=== PATIENT | female | born 1985 | race Caucasian/White ===

== ENCOUNTER 2017-10-30 09:41 | Emergency (ER) | payer MEDICAID ==
[~2017-10-30] VITALS: Ht 170.2 cm; Wt 144.2 kg
[2017-10-30 09:50] VITALS: BP 149/87
[2017-10-30] MEDS ORDERED: KETOROLAC 60 MG/2 ML VIAL IM ONE (10:25)
[2017-10-30 10:56] VITALS: BP 149/87
== END 2017-10-30 10:56 | disposition home or self-care (01) ==
LOC: MED 09:41
DX: S91.201A Unspecified open wound of right great toe with damage to nail, initial encounter (principal); F17.210 Nicotine dependence, cigarettes, uncomplicated; X58.XXXA Exposure to other specified factors, initial encounter; Y93.89 Activity, other specified; Y92.89 Other specified places as the place of occurrence of the external cause; Y99.8 Other external cause status
CPT/HCPCS: 96372; 99283; J1885

== ENCOUNTER 2018-09-08 00:30 | Emergency (ER) | payer MEDICAID, OTHER ==
[~2018-09-08] VITALS: Ht 172.7 cm; Wt 153.3 kg
[2018-09-08 00:34] VITALS: BP 177/85
--- NOTE | 2018-09-08 00:34 | NUR ---
PT TAKEN TO BED 8
--- NOTE | 2018-09-08 00:58 | NUR ---
PT TO ED WITH C/O HEADACHE WITH N/V OVER LAST 4 DAYS. PT DENIES VISUAL CHANGES. NO LIGHT SENSITIVITY. NO NOISE SENSITIVITY. PT IS ALERT TO NAME, BIRTHDAY, PLACE, AND EVENT. NO NEURO DEFCITS NOTED. PT PLACED IN BED, PENDING MD MEDLEY.
--- NOTE | 2018-09-08 01:04 | NUR ---
Dr. Mittal evaluating patient at bedside.
[2018-09-08] MEDS ORDERED: NACL 0.9% 1,000 ML IV ONE (01:10)
[2018-09-08] MEDS ORDERED: KETOROLAC 30 MG/ML VIAL IVP ONE (01:25)
[2018-09-08] MEDS ORDERED: PROCHLORPERAZINE 10 MG/2 ML VIAL IVP ONE (01:25)
[2018-09-08 02:11] VITALS: BP 177/85
--- NOTE | 2018-09-08 02:11 | NUR ---
Patient discharged with v/s stable. Written and verbal after care instructions given and explained. Patient alert, oriented and verbalized understanding of instructions. Ambulatory with steady gait. All questions addressed prior to discharge. ID band removed. Patient advised to follow up with PMD. Rx of ZOFRAN AND NAPROSYN WAS given. Patient educated on indication of medication including possible reaction and side effects. Opportunity to ask questions provided and answered.
== END 2018-09-08 02:11 | disposition home or self-care (01) ==
LOC: MED 00:30
DX: R51 Headache (principal); R19.7 Diarrhea, unspecified; G47.9 Sleep disorder, unspecified
CPT/HCPCS: 96361; 96374; 96375; 99283; J0780; J1885; J7030

== ENCOUNTER 2018-09-13 23:24 | Inpatient (IN) | payer OTHER ==
[~2018-09-13] VITALS: Ht 172.7 cm; Wt 178.7 kg
[2018-09-13 23:34] VITALS: BP 127/67
--- NOTE | 2018-09-13 23:41 | NUR ---
TO LOBBY A/W BED, AMBULATORY EKG DONE SINUS TACHYYCARDIA, ERMD NOTED
--- NOTE | 2018-09-14 | NUR ---
PT AMBULATED TO ER BED 4
--- NOTE | 2018-09-14 00:15 | NUR ---
PT IS A 33 Y/O FEMALE WHO PRESENTS TO THE ED C/O CHEST PRESSURE/PAIN. PT STATES THAT SHE WAS PREVIOUSLY SEEN IN ED X1 WEEK FOR HEADACHE AND TOLD TO COME TO ED IF SYMPTOMS GOT WORSE. PT REPORTS 10/10 ACHING CHEST PRESSURE PAIN THAT DOES NOT RADIATE, PT ALSO REPORTS "SOMETHING STUCK IN MY THROAT." PT DENIES SOB, REPORTS VOMITING DENIES NAUSEA/DIARRHEA. PT AWAKE AND ALERT, RR EVEN/UNLABORED. PT REPOSITIONED FOR COMFORT, BED IN LOWEST POSITION. ER MD DR. VALLEJO NOTIFIED. WILL CONTINUE TO MONITOR.
--- NOTE | 2018-09-14 00:52 | NUR ---
Dr. Singh evaluating patient at bedside.
--- NOTE | 2018-09-14 01:00 | NUR ---
PT IN BED RESTING WITH EYES OPEN. VSS. CONTINUE TO MONITOR.
--- NOTE | 2018-09-14 01:24 | NUR ---
X-Ray at bedside.
[2018-09-14 01:27] LABS: BASOPHILS # (AUTO) 0.1 K/uL (0.00-0.22); BASOPHILS % (AUTO) 1.1 % (0.0-2.0); EOSINOPHILS # (AUTO) 0.2 K/uL (0-0.4); EOSINOPHILS % (AUTO) 3.7 % (0.0-4.0); HEMATOCRIT 33.1 % (36-48); HEMOGLOBIN 11.3 g/dL (12.0-16.0); LYMPHOCYTES # (AUTO) 2.1 K/uL (2.5-16.5); LYMPHOCYTES % (AUTO) 32.4 % (20.5-51.1); MEAN CORPUSCULAR HEMOGLOBIN 30 pg (27-31); MEAN CORPUSCULAR HGB CONC 34 g/dL (33-37); MEAN CORPUSCULAR VOLUME 87.1 fL (80-94); MONOCYTES # (AUTO) 0.8 K/uL (0.8-1.0); MONOCYTES % (AUTO) 12.9 % (1.7-9.3); NEUTROPHILS # (AUTO) 3.2 K/uL (1.8-7.7); NEUTROPHILS % (AUTO) 49.9 % (42.2-75.2); PLATELET COUNT (AUTO) 285 K/uL (140-450); RED CELL DISTRIBUTION WIDTH 11.8 % (11.6-13.7); WHITE BLOOD COUNT (AUTO) 6.5 K/uL (4.8-10.8)
[2018-09-14 01:43] LABS: CARBON DIOXIDE 25.9 mmol/L (21-32); CREATININE 0.5 mg/dL (0.6-1.3); POTASSIUM 3.9 mmol/L (3.5-5.1)
[2018-09-14 01:48] LABS: ALBUMIN 2.6 g/dL (3.4-5.0); TOTAL BILIRUBIN 0.3 mg/dL (0.0-1.0)
[2018-09-14 01:57] LABS: CREATINE KINASE MB 0.5 ng/mL (0-3.6)
[2018-09-14] MEDS ORDERED: KETOROLAC 30 MG/ML VIAL IVP ONE (02:00)
[2018-09-14] MEDS ORDERED: NACL 0.9% 1,000 ML IV ONE ×2 (02:00→06:55)
--- NOTE | 2018-09-14 02:32 | NUR ---
PT IN BED WITH HOB ELEVATED. RESTING WITH EYES OPEN. VSS. STATES 8/10 PAIN. CONTINUE TO MONITOR.
[2018-09-14] MEDS ORDERED: ONDANSETRON 4 MG/2 ML VIAL IVP ONE (03:15)
[2018-09-14] MEDS ORDERED: MORPHINE SULFATE 4 MG/ML SYR IVP ONE (03:15)
--- NOTE | 2018-09-14 03:20 | NUR ---
CALLED AND SPOKE TO CHAUNCEY GUIDRY THAT PT WILL BE TRANSFERED FOR CT.
--- NOTE | 2018-09-14 04:46 | NUR ---
[facility] AT BEDSIDE
--- NOTE | 2018-09-14 04:59 | NUR ---
PT IN BED RESTING WITH EYES OPEN. [facility] AT BEDSIDE PREPARING FOR TRANSPORT. CONTINUE TO MONITOR.
--- NOTE | 2018-09-14 05:11 | NUR ---
PT LEFT TO [facility] ER FOR CT. TAKEN VIA AMBULANCE BY DEBBIE.
--- NOTE | 2018-09-14 06:28 | NUR ---
PT RETURNED FROM [place] VIA [facility]. TRANSFERED FROM [facility] TO [facility] 4.
--- NOTE | 2018-09-14 06:40 | NUR ---
PT STATES PAIN IS 5/10 BUT TOLLERABLE. POSITIONED IN BED WITH X2 SIDE RAILS UP. ER MD AWARE. CONTINUE TO MONITOR.
--- NOTE | 2018-09-14 06:42 | NUR ---
Dr. Singh re-evaluating patient at bedside.
[2018-09-14] MEDS ORDERED: DIAZEPAM 5 MG TAB PO ONE (06:55)
[2018-09-14] MEDS ORDERED: ASPIRIN 325 MG TAB PO ONE (07:35)
[2018-09-14] MEDS ORDERED: MORPHINE SULFATE 2 MG/ML SYR IVP PRN (07:50)
[2018-09-14] MEDS ORDERED: DOCUSATE SODIUM 100 MG GELCAP PO PRN (07:50)
[2018-09-14] MEDS ORDERED: ACETAMINOPHEN 325 MG TAB PO PRN (07:50)
[2018-09-14] MEDS ORDERED: HYDROcodone/APAP 7.5/325 MG 1 TAB PO PRN (07:50)
[2018-09-14] MEDS ORDERED: ONDANSETRON 4 MG/2 ML VIAL IM/IVP PRN (07:50)
--- NOTE | 2018-09-14 07:56 | NUR ---
PO/IVF MEDS GIVEN-NADR AT THIS TIME
--- NOTE | 2018-09-14 07:59 | NUR ---
Patient will be admitted to care of [facility]. Admited to TELE. Will go to room 119B. Belongings list completed. Report to JOHN.
[2018-09-14 08:25] VITALS: BP 152/60
--- NOTE | 2018-09-14 08:25 | NUR ---
RECEIVED PT FROM ER NURSE, PT IS AOX4, CONVERSANT AND RESPONDS APPROPRIATELY, AMBULATED TO THE BED AND MADE COMFORTABLE, VITAL SIGNS TAKEN, BP IS 152/60, PULSE IS 121, TEMPERATURE IS 98.9, O2 SATURATION IS 96% AND RESPIRATION IS 20/MIN. PT VERBALIZED A LEFT CHEST PRESSURED PAIN OF 5/10, NO OTHER UNTOWARD SYMPTOM NOTED AND WILL CONTINUE TO MONITOR PT.
[2018-09-14 09:25] LABS: BASOPHILS # (AUTO) 0.1 K/uL (0.00-0.22); BASOPHILS % (AUTO) 0.8 % (0.0-2.0); EOSINOPHILS # (AUTO) 0.2 K/uL (0-0.4); EOSINOPHILS % (AUTO) 2.5 % (0.0-4.0); HEMATOCRIT 31.1 % (36-48); HEMOGLOBIN 10.7 g/dL (12.0-16.0); LYMPHOCYTES # (AUTO) 1.6 K/uL (2.5-16.5); LYMPHOCYTES % (AUTO) 25.8 % (20.5-51.1); MEAN CORPUSCULAR HEMOGLOBIN 30 pg (27-31); MEAN CORPUSCULAR HGB CONC 34 g/dL (33-37); MEAN CORPUSCULAR VOLUME 86.8 fL (80-94); MONOCYTES # (AUTO) 0.6 K/uL (0.8-1.0); MONOCYTES % (AUTO) 9.1 % (1.7-9.3); NEUTROPHILS # (AUTO) 3.8 K/uL (1.8-7.7); NEUTROPHILS % (AUTO) 61.8 % (42.2-75.2); PLATELET COUNT (AUTO) 264 K/uL (140-450); RED BLOOD CELL COUNT(AUTO) 3.58 MIL/uL (4.20-5.40); RED CELL DISTRIBUTION WIDTH 11.8 % (11.6-13.7); WHITE BLOOD COUNT (AUTO) 6.2 K/uL (4.8-10.8)
[2018-09-14 09:41] LABS: CARBON DIOXIDE 22.7 mmol/L (21-32); POTASSIUM 3.7 mmol/L (3.5-5.1)
[2018-09-14 09:42] LABS: CREATININE 0.7 mg/dL (0.6-1.3)
--- NOTE | 2018-09-14 09:55 | NUR ---
ULTRASOUND OF THE VENOUS BILATERAL LOWER EXTREMITY IS BEING DONE TO PT NOW.
[2018-09-14 10:00] LABS: CHOL/HDL RATIO 3.3 (1-4.5); FREE T4 (FREE THYROXINE) 7.07 ng/dL (0.76-1.46); MAGNESIUM 1.6 mg/dL (1.8-2.4); PHOSPHORUS 5.1 mg/dL (2.5-4.9); THYROID STIMULATING HORMONE 0.01 uIU/mL (0.34-3.74)
[2018-09-14] MEDS ORDERED: KETOROLAC 30 MG/ML VIAL IVP SCH (10:00)
[2018-09-14] MEDS: NACL 0.9% 1,000 ML IV SCH (10:00)
[2018-09-14] MEDS ORDERED: ASPIRIN 81 MG TAB.CHEW PO SCH (10:30)
[2018-09-14] MEDS ORDERED: APAP/BUTAL/CAFF 325/50/40 MG 1 TAB PO SCH (10:30)
[2018-09-14] MEDS ORDERED: METOPROLOL 25 MG TAB PO SCH (10:31)
--- NOTE | 2018-09-14 10:35 | NUR ---
PT IS AWAKE AND MRSA SWAB DONE AND SAMPLE WAS SENT TO LAB.
[2018-09-14 10:48] LABS: PROTHROMBIN TIME 10.3 secs (10.8-13.4)
[2018-09-14 12:00] VITALS: BP 130/60
[2018-09-14] MEDS ORDERED: MAG SULF 2000 MG/WATER PREMIX 50 ML IV SCH (12:00)
--- NOTE | 2018-09-14 12:30 | NUR ---
PT IS AWAKE AND ON THE BEDSIDE, PT WAS STARTED WITH MAGNESIUM RIDER 2GM, ADMINISTERED, CO-SIGNED, FOR THE PT'S MG LEVEL OF 1.6. WILL MONITOR PT.
--- NOTE | 2018-09-14 12:45 | NUR ---
PT IS AWAKE AND ON THE BEDSIDE, VITAL SIGNS CHECKED AND BP IS 130/60, PULSE IS 111, O2 SATURATION IS 97%, TEMPERATURE IS 98.9, NO SIGN OF DISTRESS NOTED AND WILL MONITOR PT.
--- NOTE | 2018-09-14 14:10 | NUR ---
PT IS AWAKE, ON THE BEDSIDE AND WAS GIVEN A SANDWICH BECAUSE PT DID NOT EAT MUCH IN THE LUNCH TRAY. NO SIGN OF DISTRESS NOTED, DENIES PAIN AT THIS TIME AND WILL MONITOR PT.
--- NOTE | 2018-09-14 16:20 | NUR ---
PT IS AWAKE AND LYING ON THE BED, VITAL SIGNS CHECKED DONE AND BP IS 139/65, PULSE IS 120, O2 SATURATION IS AT 100%, TEMPERATURE IS 98.9, NO SIGN OF DISTRESS NOTED AND DENIES CHEST PAIN. WILL MONITOR PT.
--- NOTE | 2018-09-14 16:35 | NUR ---
PT AWAKE, ALERT IN BED. RESPIRATIONS EVEN AND UNLABORED ON O2 2L/NC. GIVEN ICE PACK PER PT REQUEST. WILL CONTINUE TO MONITOR.
[2018-09-14 16:40] VITALS: BP 139/65
--- NOTE | 2018-09-14 17:30 | NUR ---
PT STARTED ON O2 2L/NC FOR SOB. PT IN UPRIGHT POSITION IN BED. WILL CONTINUE TO MONITOR.
--- NOTE | 2018-09-14 19:29 | NUR ---
ENDORSED PT TO HEDDLER TIER NURSE FOR CONTINUITY OF CARE. PATIENT IS STABLE AT THIS TIME.
--- NOTE | 2018-09-14 19:30 | NUR ---
RECEIVED PT FROM LALY RN PT MORBID OBESITY ON BED REST ONTELMETRY ST IV ON RT HARM INFUSING WELL DENIES ANY PAIN AT THIS TIME RELATIVE AT BED SIDE INITIAL ASSESSMENT DONE
[2018-09-14 20:00] VITALS: BP 141/62
[2018-09-14] MEDS ORDERED: SERTRALINE 50 MG TAB PO ONE (20:10)
[2018-09-14] MEDS ORDERED: LORazepam 1 MG TAB PO ONE (20:10)
[2018-09-14] MEDS ORDERED: ATORVASTATIN 20 MG TAB PO SCH (21:00)
--- NOTE | 2018-09-14 21:30 | NUR ---
PT COMPLAINT OF ANXIETY AND DEPRESION AND DOCTOR WAS NOTIFYAND MEDIC GIVEN ORDER.
[2018-09-15] VITALS: BP 148/60
--- NOTE | 2018-09-15 | NUR ---
PT SLEEPING DENIES ANY PAIN OR DISCOMFORT ST ON TELEMETRY , DR WILL BE NOTIFY
--- NOTE | 2018-09-15 02:00 | NUR ---
PT AMBULATES TO THE RESTROOM VOIDING WELL, ON TELEMETRY STDR ARNOLD WAS NOTIFY
[2018-09-15] MEDS ORDERED: PROPRANOLOL 20 MG TAB PO ONE (02:50)
[2018-09-15] MEDS: NACL 0.9% 1,000 ML IV SCH (03:45)
[2018-09-15 04:00] VITALS: BP 133/59
--- NOTE | 2018-09-15 04:00 | NUR ---
PT SLEEPING ON TELEMETR ST HR 126, PT DENIES ANY PAIN OR DISCOMFORT
[2018-09-15 06:31] LABS: ANION GAP 14.7 (8-16); CARBON DIOXIDE 22.2 mmol/L (21-32); CREATININE 0.5 mg/dL (0.6-1.3); POTASSIUM 3.9 mmol/L (3.5-5.1)
--- NOTE | 2018-09-15 06:32 | NUR ---
PT REMAIN CALM BUT ON TELE METRYST PT WILL BE ENODRSED TODAY SHIFT NURSE FOR CONTINUITY OF CARE
[2018-09-15 06:44] LABS: MAGNESIUM 1.6 mg/dL (1.8-2.4); PHOSPHORUS 4.9 mg/dL (2.5-4.9)
[2018-09-15 06:59] LABS: BASOPHILS % (AUTO) 0.6 % (0.0-2.0); EOSINOPHILS # (AUTO) 0.2 K/uL (0-0.4); EOSINOPHILS % (AUTO) 3.4 % (0.0-4.0); HEMATOCRIT 31.7 % (36-48); LYMPHOCYTES # (AUTO) 1.5 K/uL (2.5-16.5); LYMPHOCYTES % (AUTO) 21.8 % (20.5-51.1); MEAN CORPUSCULAR HEMOGLOBIN 30 pg (27-31); MEAN CORPUSCULAR HGB CONC 35 g/dL (33-37); MEAN CORPUSCULAR VOLUME 87.2 fL (80-94); MONOCYTES # (AUTO) 0.7 K/uL (0.8-1.0); MONOCYTES % (AUTO) 10.7 % (1.7-9.3); NEUTROPHILS # (AUTO) 4.3 K/uL (1.8-7.7); NEUTROPHILS % (AUTO) 63.5 % (42.2-75.2); PLATELET COUNT (AUTO) 273 K/uL (140-450); RED BLOOD CELL COUNT(AUTO) 3.64 MIL/uL (4.20-5.40); RED CELL DISTRIBUTION WIDTH 11.7 % (11.6-13.7); WHITE BLOOD COUNT (AUTO) 6.8 K/uL (4.8-10.8)
--- NOTE | 2018-09-15 07:30 | NUR ---
RECEIVED PT AAOX4. NO SOB NOTED. NO C/O PAIN AT THIS TIME. IV TO RT AC PATENT AND INTACT. CHEST CLEAR. ABDOMEN SOFT, BOWEL SOUNDS PRESENT. SCD'S IN PLACE. INSTRUCTED PT TO CALL FOR ASSISTANCE, CALL LIGHT WITHIN REACH. PT VERBALIZED UNDERSTANDING.
[2018-09-15 08:00] VITALS: BP 137/62
[2018-09-15] MEDS ORDERED: MAG SULF 2000 MG/WATER PREMIX 50 ML IV SCH (08:00)
--- NOTE | 2018-09-15 08:55 | NUR ---
PT EATING GOOD. CONSUMED ALMOST 100% OF BREAKFAST SERVED. NO COMPLAINTS MADE.
[2018-09-15] MEDS ORDERED: METOPROLOL 25 MG TAB PO SCH (09:00)
[2018-09-15] MEDS ORDERED: ASPIRIN 81 MG TAB.CHEW PO SCH (09:00)
[2018-09-15] MEDS ORDERED: LISINOPRIL 5 MG TAB PO SCH (09:00)
--- NOTE | 2018-09-15 09:00 | NUR ---
MAG RADHA NAPOLES. MAGNESIUM LEVEL AT 1200 NOON ORDERED.
--- NOTE | 2018-09-15 11:00 | NUR ---
MAG RIDER IVPB COMPLETED. PT RESTING. NO COMPLAINTS MADE.
[2018-09-15 12:00] VITALS: BP 140/45
--- NOTE | 2018-09-15 12:30 | NUR ---
INSTRUCTED PT THAT LAB WILL BE HERE TO DRAW BLOOD FOR MAGNESIUM LEVEL. PT VERBALIZED UNDERSTANDING.
[2018-09-15] MEDS ORDERED: ATEN50TA2 PO (12:38)
[2018-09-15] MEDS ORDERED: IBUP-2213 PO (12:38)
[2018-09-15] MEDS ORDERED: SERT50TA PO (12:38)
[2018-09-15] MEDS ORDERED: SLOMAG PO (14:16)
--- NOTE | 2018-09-15 14:36 | NUR ---
GENERAL HEALTHY EATING EDUCATION WAS PROVIDED. PT'S FAMILY MEMBER WAS PRESENTED, AND THEY ACCEPTED EDUCATION.
--- NOTE | 2018-09-15 15:00 | NUR ---
DISCHARGE INSTRUCTIONS AND TEACHINGS GIVEN TO PT, WHICH FULL VERBALIZED UNDERSTANDING THE INSTRUCTIONS GIVEN AND THE NEED TO FOLLOW UP WITH PCP AND ACETYLENE CYLINDER PACKING MIXER ON THE GIVEN APPOINTMENT BY MECHANICAL UNIT REPAIRER. PER DR. SAWYER, MECHANICAL UNIT REPAIRER NORBERT WILL GIVE PT A CALL SOON SHE HAS ALL THE INFORMATIONS. ARM BANDS AND IV REMOVED, CANNULA TIP INTACT. PT MADE AWARE THAT ALL THE PRESCRIPTIONS WERE SENT ELECTRONICALLY TO HER PHARMACY OF CHOICE IN [place]. PT STATED SHE WILL PICK IT UP ON HER WAY HOME.
--- NOTE | 2018-09-15 15:05 | NUR ---
PT WHEELED OUT TO THE FRONT LOBBY IN STABLE CONDITION. NO SOB NOTED. NO COMPLAINTS MADE. PT IS DISCHARGED HOME WITH .
--- NOTE | 2018-09-15 15:25 | NUR ---
CALLED [facility] [phone] FOR AUTH# TO SEE DAY CARE PROVIDER FAXED THE REFERRAL FORM TO [phone] BEASLEY'S OFFICE NEXT AVAILABLE TIME IS OCTOBER [address] LANGE . CALED PATIENT'S SPOKE WITH KASH MENON [phone] NOTIFIED THAT SHE HAS APPOINTMENT WITH DR LANGE (DAY CARE PROVIDER) AND PROVIDED THE OFFICE ADDRESS AND PHONE # [phone] [facility] [place] [address] PHONE # [phone].
[2018-09-16] MEDS ORDERED: ATENOLOL 50 MG TAB PO SCH (09:00)
== END 2018-09-15 15:05 | disposition home or self-care (01) | DRG 203 ==
LOC: MED 23:24 → MTU 09-14 07:37
PROVIDERS: ADMIT General Practice; ATTEND General Practice
PROC: 05HY33Z Insertion of Infusion Device into Upper Vein, Percutaneous Approach (ICD-10-PCS; principal; 2018-09-14)
PROC: B54MZZA Ultrasonography of Right Upper Extremity Veins, Guidance (ICD-10-PCS; 2018-09-14)
DX: M94.0 Chondrocostal junction syndrome [Tietze] (principal); E43 Unspecified severe protein-calorie malnutrition; E66.01 Morbid (severe) obesity due to excess calories; E83.42 Hypomagnesemia; E05.90 Thyrotoxicosis, unspecified without thyrotoxic crisis or storm; Z68.43 Body mass index [BMI] 50.0-59.9, adult; Z71.3 Dietary counseling and surveillance; Z82.3 Family history of stroke; Z82.49 Family history of ischemic heart disease and other diseases of the circulatory system; K21.9 Gastro-esophageal reflux disease without esophagitis
CPT/HCPCS: 36415; 71045; 80048; 80053; 82140; 82150; 82550; 82553; 83036; 83605; 83615; 83690; 83735; 83880; 84100; 84439; 84443; 84484; 85025; 85379; 85610; 85730; 87081; 93005; 93970; 96361; 96374; 96375; 99291; J1644; J1885; J2270; J2405; J3475; J7030; Q0092

== ENCOUNTER 2018-09-29 09:11 | Observation (INO) | payer OTHER ==
[~2018-09-29] VITALS: Ht 172.7 cm; Wt 170.1 kg
[~2018-09-29 09:11] MED LIST: ATEN50TA2 PO; IBUP-2213 PO; SERT50TA PO; SLOMAG PO
--- NOTE | 2018-09-29 09:15 | NUR ---
urine cup handed to pt for sample
[2018-09-29 09:18] VITALS: BP 142/51
--- NOTE | 2018-09-29 09:20 | NUR ---
33 y female bib self c/o feeling shaky, hot, n/v/d, leg weakness x 1 wk. patient states every time she eats she has diarrhea and vomits. denies blood in stool. abdomen round and soft, non-tender to touch. bowel sounds active in all four quadrants. last bm today. pt tacy at 106. aa0x4. bed is down, locked bed rail x 1, ermd to see pt. seen and admitted in our er September 2018 hx--hyperthryoid rx---atenolol
--- NOTE | 2018-09-29 09:25 | NUR ---
DR LIU BEDSIDE
[2018-09-29] MEDS ORDERED: NACL 0.9% 1,000 ML IV ONE ×2 (09:35→10:25)
--- NOTE | 2018-09-29 09:38 | NUR ---
PT UNABLE TO GIVE URINE AT THIS TIME
[2018-09-29 09:58] LABS: BASOPHILS % (AUTO) 0.7 % (0.0-2.0); EOSINOPHILS # (AUTO) 0.1 K/uL (0-0.4); EOSINOPHILS % (AUTO) 1.6 % (0.0-4.0); HEMATOCRIT 30.6 % (36-48); HEMOGLOBIN 10.5 g/dL (12.0-16.0); LYMPHOCYTES # (AUTO) 1.2 K/uL (2.5-16.5); LYMPHOCYTES % (AUTO) 21.1 % (20.5-51.1); MEAN CORPUSCULAR HEMOGLOBIN 29 pg (27-31); MEAN CORPUSCULAR HGB CONC 34 g/dL (33-37); MEAN CORPUSCULAR VOLUME 85.6 fL (80-94); MONOCYTES # (AUTO) 0.7 K/uL (0.8-1.0); MONOCYTES % (AUTO) 12.9 % (1.7-9.3); NEUTROPHILS # (AUTO) 3.6 K/uL (1.8-7.7); NEUTROPHILS % (AUTO) 63.7 % (42.2-75.2); PLATELET COUNT (AUTO) 247 K/uL (140-450); RED BLOOD CELL COUNT(AUTO) 3.58 MIL/uL (4.20-5.40); RED CELL DISTRIBUTION WIDTH 11.3 % (11.6-13.7); WHITE BLOOD COUNT (AUTO) 5.6 K/uL (4.8-10.8)
--- NOTE | 2018-09-29 10:10 | NUR ---
XRAY AT BEDSIDE
[2018-09-29 10:15] LABS: ALBUMIN 2.8 g/dL (3.4-5.0); ANION GAP 12.9 (8-16); CARBON DIOXIDE 24.8 mmol/L (21-32); CREATININE 0.5 mg/dL (0.6-1.3); POTASSIUM 3.7 mmol/L (3.5-5.1); TOTAL BILIRUBIN 0.5 mg/dL (0.0-1.0)
[2018-09-29] MEDS ORDERED: METOPROLOL 5 MG/5 ML VIAL IVP ONE (10:25)
--- NOTE | 2018-09-29 10:46 | NUR ---
PT UNABLE TO GIVE URINE AT THIS TIME. ANOTHER 1000 ML NS STarted. pt given metroprolol for pt hr. tachy at 108. bp 126/56
--- NOTE | 2018-09-29 11:24 | NUR ---
PT AMB TO RESTROOM FOR URINE SAMPLE
--- NOTE | 2018-09-29 11:45 | NUR ---
BP 114/43 AND HR 103
[2018-09-29] MEDS ORDERED: ONDANSETRON 4 MG/2 ML VIAL IVP ONE (12:05)
--- NOTE | 2018-09-29 12:12 | NUR ---
PT C/O INCREASED NAUSEA. PT GIVEN VOMIT BAG AND ZOFRAN ADMINISTERED IV PUSH
[2018-09-29] MEDS ORDERED: NACL 0.9% 1,000 ML IV SCH (12:21)
[2018-09-29] MEDS ORDERED: DOCUSATE SODIUM 100 MG GELCAP PO PRN (12:25)
[2018-09-29] MEDS ORDERED: ACETAMINOPHEN 325 MG TAB PO PRN (12:25)
[2018-09-29] MEDS ORDERED: HYDROcodone/APAP 5/325 MG 1 TAB TAB PO PRN (12:25)
[2018-09-29] MEDS ORDERED: LORazepam 2 MG/ML VIAL IM/IVP PRN (12:25)
[2018-09-29] MEDS ORDERED: MORPHINE SULFATE 2 MG/ML SYR IVP PRN (12:25)
[2018-09-29] MEDS ORDERED: DEXT 5% / NACL 0.45% 1,000 ML IV SCH (12:45)
[2018-09-29 12:55] VITALS: BP 116/42
--- NOTE | 2018-09-29 12:55 | NUR ---
PATIENT ARRIVED FROM ER. ABLE TO AMBULATE FROM ER BED TO [facility] BED. NO DISTRESS NOTED. V/S WNL. RESPIRATIONS EVEN, UNLABORED, ON ROOM AIR. AAOX4, CALM, COOPERATIVE, SKIN COLOR APPROPRIATE TO ETHNICITY, WARM TO TOUCH. SKIN INTACT. PATIENT MORBIDLY OBESE. IV SITE INTACT, PATENT, AND ON SALINE LOCK AT THIS TIME. ORIENTED PATIENT TO ROOM AND CALL LIGHT. REVIEWED PLAN OF CARE WITH PATIENT. PATIENT VERBALIZED UNDERSTANDING. SAFETY MEASURES IN PLACE, CALL LIGHT WITHIN REACH. WILL CONTINUE TO MONITOR.
--- NOTE | 2018-09-29 12:55 | NUR ---
Patient will be admitted to care of [facility]. Admited to TELE. Will go to room 106A. Belongings list completed. Report to BORA MOYER. ATIVAN ADMINISTERED AT 1245-TO BE RE-EVALUATED FOR ADVERSE REACTIONS BY BORA MOYER.
[2018-09-29 13:15] LABS: BARBITURATE, URINE NEGATIVE ng/ml (NEG <=200); BENZODIAZEPINE, URINE NEGATIVE ng/mL (NEG <=200); CANNABINOID, URINE POSITIVE ng/mL (NEG <=50); COCAINE, URINE NEGATIVE ng/mL (NEG <=300); OPIATE, URINE NEGATIVE ng/mL (NEG <=2000); PHENCYCLIDINE SCREEN,URINE NEGATIVE ng/mL (NEG <=25)
[2018-09-29 13:32] LABS: PROTHROMBIN TIME 11.3 secs (10.8-13.4)
[2018-09-29 13:34] LABS: APPEARANCE,URINE HAZY (CLEAR); BILIRUBIN,URINE 1+ (NEGATIVE); BLOOD, URINE TRACE (NEGATIVE); COLOR,URINE YELLOW (YELLOW); NITRITE, URINE NEGATIVE (NEGATIVE); PH,URINE 5.5 (5.0-9.0); UGLUCOSE NEGATIVE (NEGATIVE)
[2018-09-29 13:35] LABS: LEUKOCYTE ESTERASE ,URINE 3+ (NEGATIVE)
[2018-09-29 13:39] LABS: TRICHOMONAS,URINE Few /HPF (None Seen)
[2018-09-29 13:44] LABS: AMYLASE 13 U/L (25-115); LIPASE 107 U/L (73-393); MAGNESIUM 1.5 mg/dL (1.8-2.4); PHOSPHORUS 4.7 mg/dL (2.5-4.9)
[2018-09-29 13:47] LABS: FREE T4 (FREE THYROXINE) > 8.00 ng/dL (0.76-1.46)
--- NOTE | 2018-09-29 13:50 | NUR ---
DR. ROMO AT BEDSIDE REVIEWING PLAN OF CARE WITH PATIENT. DR. ROMO EXPLAINING THE RISKS OF TAKING MEDICATIONS TO HELP WITH HYPERTHYROIDISM TO PATIENT, RISKS INCLUDE DIFFICULTY CONCEIVING. DR. ROMO ANSWERED ALL OF PATIENT/FAMILY QUESTIONS REGARDING PLANNED TREATMENT MEDICATIONS AND RISKS/SIDE EFFECTS. PATIENT/FAMILY AT BEDSIDE VERBALIZED COMPLETE UNDERSTANDING AND WISHES TO CONTINUE TO PROCEED WITH THE MEDICATION TREATMENT. WILL CONTINUE TO MONITOR.
[2018-09-29] MEDS ORDERED: MAG SULF 2000 MG/WATER PREMIX 50 ML IV SCH (14:00)
[2018-09-29] MEDS ORDERED: ATENOLOL 50 MG TAB PO SCH (14:14)
--- NOTE | 2018-09-29 15:04 | NUR ---
PATIENT SITTING IN BED. NO DISTRESS NOTED. DENIES ANY PAIN. SCHEDULED MEDICATIONS DUE GIVEN. WILL CONTINUE TO MONITOR.
--- NOTE | 2018-09-29 15:15 | NUR ---
US THYROID BEING DONE AT BEDSIDE. WILL CONTINUE TO MONITOR.
[2018-09-29] MEDS ORDERED: ONDANSETRON 4 MG/2 ML VIAL IM/IVP PRN (16:00)
--- NOTE | 2018-09-29 16:25 | NUR ---
PATIENT BACK FROM CT ABD WITH CONTRAST. NO DISTRESS NOTED. WILL CONTINUE TO MONITOR.
--- NOTE | 2018-09-29 16:36 | NUR ---
SCHEDULED MEDICATIONS DUE GIVEN. DENIES ANY NAUSEA/VOMITING AT THIS TIME. WILL CONTINUE TO MONITOR.
[2018-09-29] MEDS ORDERED: METHIMAZOLE 5 MG TAB PO SCH ×3 (17:00→21:00)
--- NOTE | 2018-09-29 17:09 | NUR ---
SCHEDULED MEDICATIONS DUE GIVEN. WILL CONTINUE TO MONITOR.
--- NOTE | 2018-09-29 19:14 | NUR ---
GAVE REPORT TO GALLEY STRIPPER NURSE FOR CONTINUITY OF CARE. PATIENT IN STABLE CONDITION.
--- NOTE | 2018-09-29 19:15 | NUR ---
Received endorsement from AM shift RN; patient A/Ox4, able to make needs known, Nauruan speaking, ambulatory. Patient talking with and [id number]; introduced self, updated board. No SOB or distress noted, on room air. IV site on left forearm, 20 gauge, running IVF at 80mL/hr. Skin intact. Bed in the lowest position, call light within reach. Initial assessment done. Will continue to monitor.
[2018-09-29 20:00] VITALS: BP 100/73
--- NOTE | 2018-09-29 20:45 | NUR ---
Due meds given, tolerated well.
--- NOTE | 2018-09-29 21:20 | NUR ---
Dr. Minor in patient room to discuss imaging results.
--- NOTE | 2018-09-29 21:25 | NUR ---
Patient went AMA; risks explained, patient still wants to go AMA. AMA paperwork signed. Removed IV, tip intact. Patient able to ambulate from bed with no assistance. Patient ambulated from unit with and [id number]. Vitals stable upon discharge.
[2018-09-30] MEDS ORDERED: ATENOLOL 50 MG TAB PO SCH (09:00)
[2018-09-30] MEDS ORDERED: LACTOBACILLUS RHAMNOSUS GG 1 EACH CAP PO SCH (09:00)
[2018-09-30 11:29] LABS: T3 UPTAKE > 56 % (24 - 39); T4 (THYROXINE) 21.3 ug/dL (4.5 - 12.0)
[2018-10-01 15:06] LABS: FOLIC ACID 11.5 ng/mL (>3.0)
== END 2018-09-29 21:25 | disposition left against medical advice (07) ==
LOC: MED 09:11 → MTU 12:37
PROVIDERS: ADMIT General Practice; ATTEND General Practice
DX: A41.9 Sepsis, unspecified organism (principal); N39.0 Urinary tract infection, site not specified; K92.9 Disease of digestive system, unspecified; E05.90 Thyrotoxicosis, unspecified without thyrotoxic crisis or storm; E46 Unspecified protein-calorie malnutrition; E83.42 Hypomagnesemia; D50.9 Iron deficiency anemia, unspecified; E66.01 Morbid (severe) obesity due to excess calories; Z68.43 Body mass index [BMI] 50.0-59.9, adult
CPT/HCPCS: 36415; 71045; 74178; 76536; 80053; 80305; 81001; 81025; 82150; 82607; 82728; 82746; 83540; 83605; 83690; 83735; 83880; 84100; 84436; 84439; 84443; 84479; 84484; 85025; 85045; 85379; 85610; 85730; 87040; 87081; 87086; 93005; 96361; 96365; 96366; 96368; 96375; 99285; G0378; J0696; J2060; J2405; J3475; J3490; J7030; J7060; Q0092; Q9967; 96372; 96374

== ENCOUNTER 2019-05-22 18:52 | Emergency (ER) | payer SELFPAY ==
[~2019-05-22] VITALS: Ht 172.7 cm; Wt 169.6 kg
[~2019-05-22 18:52] MED LIST changes: -SERT50TA PO; -SLOMAG PO
--- NOTE | 2019-05-22 19:21 | NUR ---
PT TAKEN TO BED 2
[2019-05-22 19:25] VITALS: BP 123/86
--- NOTE | 2019-05-22 19:30 | NUR ---
REPORTING DIZZINESS, PALPATATIONS, NVD ON AND OFF FOR THE PAST WEEK. PATIENT AMB WITH STEADY GAIT. PATIENT REPORTS HX OF GRAVES DISEASE. STATES SHE FELT LIKE THIS LAST TIME SHE WAS IN THYROID STORM. LUNGS CLEAR. ABD SOFT AND NON-TENDER, AAO. STATES SHE GETS DIZZY WHEN SHE WALKS. NO OTHER HX REPORTED. SITTING UP IN BED. PATIENT VSS ON MONITOR. BED LOW LOCKED WITH SIDE RAIL UP.
[2019-05-22] MEDS ORDERED: ONDANSETRON 4 MG ODT PO ONE (19:50)
[2019-05-22] MEDS ORDERED: LORazepam 1 MG TAB PO ONE (19:50)
--- NOTE | 2019-05-22 20:16 | NUR ---
XRAY AT BEDSIDE
[2019-05-22 20:18] LABS: BASOPHILS # (AUTO) 0.1 K/uL (0.00-0.22); BASOPHILS % (AUTO) 1.3 % (0.0-2.0); EOSINOPHILS # (AUTO) 0.1 K/uL (0-0.4); EOSINOPHILS % (AUTO) 1.2 % (0.0-4.0); HEMATOCRIT 42.3 % (36-48); HEMOGLOBIN 14.1 g/dL (12.0-16.0); LYMPHOCYTES # (AUTO) 2.9 K/uL (2.5-16.5); LYMPHOCYTES % (AUTO) 40.7 % (20.5-51.1); MEAN CORPUSCULAR HEMOGLOBIN 30 pg (27-31); MEAN CORPUSCULAR HGB CONC 33 g/dL (33-37); MONOCYTES # (AUTO) 0.6 K/uL (0.8-1.0); MONOCYTES % (AUTO) 8.5 % (1.7-9.3); NEUTROPHILS # (AUTO) 3.5 K/uL (1.8-7.7); NEUTROPHILS % (AUTO) 48.3 % (42.2-75.2); PLATELET COUNT (AUTO) 313 K/uL (140-450); RED BLOOD CELL COUNT(AUTO) 4.76 MIL/uL (4.20-5.40); RED CELL DISTRIBUTION WIDTH 13.1 % (11.6-13.7); WHITE BLOOD COUNT (AUTO) 7.2 K/uL (4.8-10.8)
[2019-05-22 20:43] LABS: ALBUMIN 3.6 g/dL (3.4-5.0); ANION GAP 11.4 (8-16); CREATININE 0.9 mg/dL (0.6-1.3); FREE T4 (FREE THYROXINE) 0.49 ng/dL (0.76-1.46); POTASSIUM 3.4 mmol/L (3.5-5.1); THYROID STIMULATING HORMONE 22.52 uIU/mL (0.34-3.74); TOTAL BILIRUBIN 0.2 mg/dL (0.0-1.0)
--- NOTE | 2019-05-22 21:21 | NUR ---
REPORT RECIEVED FROM [facility] FOR CONTINUED CARE. PATIENT SITTING UP IN BED.
--- NOTE | 2019-05-22 21:21 | NUR ---
Note kelseymilena in EDM - 05/22/19 at 2121 by CÉSAR REPORT RECIEVED FROM [facility] FOR CONTINUED CARE. PATIENT SITTING UP IN BED. SON AT BEDSIDE. PATIENT STATES HER PAIN IS 8/10 AFTER BEING MANIPULATED FOR XRAY.
[2019-05-22 21:38] LABS: APPEARANCE,URINE CLEAR (CLEAR); BILIRUBIN,URINE NEGATIVE (NEGATIVE); BLOOD, URINE NEGATIVE (NEGATIVE); COLOR,URINE YELLOW (YELLOW); LEUKOCYTE ESTERASE ,URINE NEGATIVE (NEGATIVE); NITRITE, URINE NEGATIVE (NEGATIVE); UGLUCOSE NEGATIVE (NEGATIVE)
[2019-05-22 21:51] VITALS: BP 112/78
== END 2019-05-22 21:51 | disposition home or self-care (01) ==
LOC: MED 18:52
DX: E07.9 Disorder of thyroid, unspecified (principal); R00.2 Palpitations; F41.9 Anxiety disorder, unspecified; R19.7 Diarrhea, unspecified; Z79.899 Other long term (current) drug therapy
CPT/HCPCS: 36415; 71045; 80053; 81003; 81025; 84439; 84443; 85025; 93005; 99284; Q0092; Q0162

== ENCOUNTER 2019-08-19 09:31 | Emergency (ER) | payer SELFPAY ==
[~2019-08-19] VITALS: Ht 172.7 cm; Wt 152.0 kg
[2019-08-19 09:44] VITALS: BP 154/100
--- NOTE | 2019-08-19 09:48 | NUR ---
Patient ambulated to bed 4. RN evaluating patient at bedside.
--- NOTE | 2019-08-19 10:05 | NUR ---
C/O L KNEE PAIN 09/21 DUE TO SLIP AND FALL IN THE SHOWER X2 DAYS AGO. PT DENIES HITTING HEAD. CMS INTACT. PT STATES PAIN WITH WALKING OR BENDING KNEE, FACIAL GRIMACING. L KNEE TENDER TO TOUCH. PT REPORTS TAKING TYLENOL WITHY SOME RELIEF. PT ALERT AND AWAKE, VS STABLE. AMBULATES WITH LIMP. HX: GRAVES DISEASE RX: NONE AT THIS TIME
--- NOTE | 2019-08-19 10:07 | NUR ---
RESIDENT AT BEDSIDE
[2019-08-19] MEDS: ACETAMINOPHEN 325 MG TAB PO ONE (10:24)
[2019-08-19] MEDS: IBUPROFEN 400 MG TAB PO ONE (10:24)
--- NOTE | 2019-08-19 10:24 | NUR ---
TYLENOL AND MOTRIN PO ADMINISTERED. PT STATES SHE HASNT TAKEN EITHER RECENTLY
--- NOTE | 2019-08-19 11:35 | NUR ---
NADR, PAIN 06/21
--- NOTE | 2019-08-19 11:35 | NUR ---
APPLIED SRIKANTH WRAP TO LEFT ANKLE WITHOUT ANY ISSUES. PT DEMONSTRATED PROPER USE OF CRUTCHES
--- NOTE | 2019-08-19 11:36 | NUR ---
L PEDAL PULSE WNL AFTER SRIKANTH WRAP PLACED. PT VERBALIZED UNDERSTANDING OF CRUTCH USE
[2019-08-19 11:37] VITALS: BP 129/59
--- NOTE | 2019-08-19 11:37 | NUR ---
Patient discharged with v/s stable. Written and verbal after care instructions given and explained REGARDING KNEE SPRAIN. Patient alert, oriented and verbalized understanding of instructions. Ambulatory with steady gait. All questions addressed prior to discharge. ID band removed. Patient advised to follow up with PMD. Rx of NAPROSYN. PT INSTRUCTED TO TAKE WITH MEAL AND CAN ALTERNATE WITH TYLENOL/MOTRIN. Patient educated on indication of medication including possible reaction and side effects. Opportunity to ask questions provided and answered. PT INSTRUCTED TO CONTINUE WEARING SRIKANTH WRAP WITH ACTIVITY, CAN REMOVE WITH SHOWER. APPLY ICE 2-3 TIMES A DAY
== END 2019-08-19 11:37 | disposition home or self-care (01) ==
LOC: MED 09:31
DX: S83.8X2A Sprain of other specified parts of left knee, initial encounter (principal); E07.9 Disorder of thyroid, unspecified; E05.00 Thyrotoxicosis with diffuse goiter without thyrotoxic crisis or storm; Z79.899 Other long term (current) drug therapy; W18.39XA Other fall on same level, initial encounter; Y92.89 Other specified places as the place of occurrence of the external cause; Y92.012 Bathroom of single-family (private) house as the place of occurrence of the external cause; Y99.8 Other external cause status
CPT/HCPCS: 73562; 99283; Q0092

== ENCOUNTER 2020-02-13 19:12 | Emergency (ER) | payer OTHER ==
[~2020-02-13] VITALS: Ht 172.7 cm; Wt 170.6 kg
[2020-02-13 19:15] VITALS: BP 139/107
--- NOTE | 2020-02-13 19:22 | NUR ---
BIBS, C/O NON-RADIATING CX PAIN X2D. STATES PAIN IS 6/10 WITH MOVEMENT BUT WHEN SITTING ITS 1/10. PLACED ON MONITOR. SR NOTED. + S1, S2 UPON AUSCULTATION. HR WNL. SPO2 WNL. STATES THAT SHE HAS LOSS OF TASTE AND SMELL AND CONGESTION. CLAIMS NEGATIVE COVID RESULTS 2 DAYS AGO. LUNG SOUNDS WNL. NO SOB OR RESP DISTRESS OBSERVED. PMH- GRAVES DISEASE, UTI. NKA.
[2020-02-13] MEDS ORDERED: KETOROLAC 30 MG/ML VIAL IVP ONE (19:55)
[2020-02-13] MEDS ORDERED: NACL 0.9% 1,000 ML IV ONE (19:55)
[2020-02-13 20:27] LABS: BASOPHILS # (AUTO) 0.1 K/uL (0.00-0.22); BASOPHILS % (AUTO) 1.1 % (0.0-2.0); EOSINOPHILS # (AUTO) 0.5 K/uL (0-0.4); EOSINOPHILS % (AUTO) 4.8 % (0.0-4.0); HEMATOCRIT 40.1 % (36-48); HEMOGLOBIN 13.9 g/dL (12.0-16.0); LYMPHOCYTES # (AUTO) 2.4 K/uL (2.5-16.5); LYMPHOCYTES % (AUTO) 24.3 % (20.5-51.1); MEAN CORPUSCULAR HEMOGLOBIN 30 pg (27-31); MEAN CORPUSCULAR HGB CONC 35 g/dL (33-37); MEAN CORPUSCULAR VOLUME 87.8 fL (80-94); MONOCYTES # (AUTO) 0.5 K/uL (0.8-1.0); NEUTROPHILS # (AUTO) 6.4 K/uL (1.8-7.7); NEUTROPHILS % (AUTO) 64.8 % (42.2-75.2); PLATELET COUNT (AUTO) 272 K/uL (140-450); RED BLOOD CELL COUNT(AUTO) 4.57 MIL/uL (4.20-5.40); RED CELL DISTRIBUTION WIDTH 12.9 % (11.6-13.7); WHITE BLOOD COUNT (AUTO) 9.9 K/uL (4.8-10.8)
--- NOTE | 2020-02-13 20:30 | NUR ---
22G IV STARTED IN LT AC, 2 ATTEMPTS MADE. FLUIDS RAN WIDE OPEN ORDERED. PT TOLERATED WELL. WILL CONT TO MONITOR.
[2020-02-13 20:50] LABS: ALBUMIN 3.4 g/dL (3.4-5.0); ANION GAP 15.5 (8-16); CARBON DIOXIDE 23.8 mmol/L (21-32); CREATININE 0.8 mg/dL (0.6-1.3); POTASSIUM 3.3 mmol/L (3.5-5.1); TOTAL BILIRUBIN 0.2 mg/dL (0.0-1.0)
[2020-02-13] MEDS ORDERED: POTASSIUM CHLORIDE 10 MEQ TABER PO ONE (21:00)
--- NOTE | 2020-02-13 22:31 | NUR ---
Patient discharged with v/s stable. Written and verbal after care instructions given and explained. Patient verbalized understanding. Ambulatory with steady gait. All questions addressed prior to discharge. Advised to follow up with PMD.
[2020-02-13 22:35] VITALS: BP 137/88
--- NOTE | 2020-02-16 01:58 | NUR ---
late entry----- s/w primary nurse Parul, as follows; NS 0.9% End time: 2119
== END 2020-02-13 22:31 | disposition home or self-care (01) ==
LOC: MED 19:12
DX: R07.9 Chest pain, unspecified (principal); M79.89 Other specified soft tissue disorders
CPT/HCPCS: 36415; 71045; 80053; 81025; 84443; 84484; 85025; 87426; 93005; 96361; 96374; 99285; J1885; J7030; Q0092

== ENCOUNTER 2020-02-24 12:39 | Emergency (ER) | payer OTHER ==
[~2020-02-24] VITALS: Ht 172.7 cm; Wt 146.1 kg
[2020-02-24 12:53] VITALS: BP 149/94
--- NOTE | 2020-02-24 13:25 | NUR ---
COVID SWAB COLLECTED, GIVEN TO LAB.
[2020-02-24 13:32] VITALS: BP 149/94
== END 2020-02-24 13:32 | disposition home or self-care (01) ==
LOC: MED 12:39
DX: R03.0 Elevated blood-pressure reading, without diagnosis of hypertension (principal); F17.200 Nicotine dependence, unspecified, uncomplicated; E07.9 Disorder of thyroid, unspecified; Z79.899 Other long term (current) drug therapy; Z98.890 Other specified postprocedural states; Z20.828 Contact with and (suspected) exposure to other viral communicable diseases; Z71.6 Tobacco abuse counseling
CPT/HCPCS: 99283; U0003

== ENCOUNTER 2020-08-29 11:17 | Emergency (ER) | payer OTHER ==
[~2020-08-29] VITALS: Ht 172.7 cm; Wt 158.8 kg
[2020-08-29 11:31] VITALS: BP 153/99
--- NOTE | 2020-08-29 12:00 | NUR ---
35 YEAR OLD FEMALE COMPLAINS OF NAUSEA, VOMITTING, AND DIARRHEA X 2 DAYS. PT STATES THAT SHE ALSO HAD SYNCOPE EPISODE 3 DAYS AGO, BUT DOES NOT FEEL LIKE SHE IS GOING TO PASS OUT RIGHT NOW. PT STATES SHE HAS HEADACHE. PT AOX4, BREATHING EVEN AND UNLABORED, SKIN WARM AND DRY. BED IN LOWEST POSITION, LOCKED, BED RAIL UPX1. PMH - HYPERTHYROID ALLERGIES - NKA
[2020-08-29] MEDS ORDERED: ONDANSETRON 4 MG/2 ML VIAL IVP ONE (12:10)
[2020-08-29] MEDS ORDERED: KETOROLAC 15 MG/ML VIAL IVP ONE (12:10)
[2020-08-29 12:30] LABS: BASOPHILS # (AUTO) 0.1 K/uL (0.00-0.22); BASOPHILS % (AUTO) 1.1 % (0.0-2.0); EOSINOPHILS # (AUTO) 0.4 K/uL (0-0.4); EOSINOPHILS % (AUTO) 4.8 % (0.0-4.0); HEMATOCRIT 40.4 % (36-48); HEMOGLOBIN 13.8 g/dL (12.0-16.0); LYMPHOCYTES # (AUTO) 1.8 K/uL (2.5-16.5); LYMPHOCYTES % (AUTO) 24.5 % (20.5-51.1); MEAN CORPUSCULAR HEMOGLOBIN 30 pg (27-31); MEAN CORPUSCULAR HGB CONC 34 g/dL (33-37); MEAN CORPUSCULAR VOLUME 87.8 fL (80-94); MONOCYTES # (AUTO) 0.4 K/uL (0.8-1.0); MONOCYTES % (AUTO) 5.4 % (1.7-9.3); NEUTROPHILS # (AUTO) 4.8 K/uL (1.8-7.7); NEUTROPHILS % (AUTO) 64.2 % (42.2-75.2); PLATELET COUNT (AUTO) 294 K/uL (140-450); RED CELL DISTRIBUTION WIDTH 12.7 % (11.6-13.7); WHITE BLOOD COUNT (AUTO) 7.4 K/uL (4.8-10.8)
--- NOTE | 2020-08-29 12:31 | NUR ---
ULTRASOUND AT BEDSIDE
--- NOTE | 2020-08-29 13:00 | NUR ---
PT ALERT AND AWAKE, BREATHING EVEN AND UNLABORED. NO DISTRESS NOTED.
[2020-08-29 13:23] LABS: ALBUMIN 3.5 g/dL (3.4-5.0); ANION GAP 11.8 (8-16); CARBON DIOXIDE 29.2 mmol/L (21-32); CREATININE 0.7 mg/dL (0.6-1.3); FREE T4 (FREE THYROXINE) 0.87 ng/dL (0.76-1.46); THYROID STIMULATING HORMONE 1.04 uIU/mL (0.34-3.74); TOTAL BILIRUBIN 0.3 mg/dL (0.0-1.0)
[2020-08-29] MEDS ORDERED: TAP5 PO (13:59)
[2020-08-29] MEDS ORDERED: ZOLP12.564 PO (13:59)
[2020-08-29 14:10] VITALS: BP 134/78
--- NOTE | 2020-08-29 14:11 | NUR ---
Patient discharged with v/s stable. Written and verbal after care instructions about insomnia, hyperthyroidism given and explained. Patient alert, oriented and verbalized understanding of instructions. Ambulatory with steady gait. All questions addressed prior to discharge. ID band removed. Patient advised to follow up with PMD. Rx of tapazole, zolpidem given. Patient educated on indication of medication including possible reaction and side effects. Opportunity to ask questions provided and answered.
== END 2020-08-29 14:30 | disposition home or self-care (01) ==
LOC: MED 11:17
DX: R00.2 Palpitations (principal); R07.9 Chest pain, unspecified; R55 Syncope and collapse; R11.2 Nausea with vomiting, unspecified; R19.7 Diarrhea, unspecified; E07.9 Disorder of thyroid, unspecified; Z79.899 Other long term (current) drug therapy
CPT/HCPCS: 36415; 71045; 80053; 81002; 81025; 84439; 84443; 84484; 85025; 85379; 93005; 93971; 96374; 96375; 99285; J1885; J2405

== ENCOUNTER 2020-12-27 21:02 | Emergency (ER) | payer OTHER ==
[~2020-12-27] VITALS: Ht 172.7 cm; Wt 165.6 kg
[~2020-12-27 21:02] MED LIST changes: +TAP5 PO; +ZOLP12.564 PO
[2020-12-27 21:58] VITALS: BP 199/111
--- NOTE | 2020-12-27 22:07 | NUR ---
TO BED 6 FROM TRIAGE
--- NOTE | 2020-12-27 22:15 | NUR ---
PT BIB SELF FOR C/C DIARRHEA, NAUSEA AND INSOMNIA. PT STATES SHE HASNT SLEPT SINCE FRIDAY. DENIES PAIN OR DISCOMFORT AT THIS TIME. DENIES BLOOD IN STOOL. REPORTS DX OF HYPERTHYROID AND GRAVES DISEASE X 1.5 YEARS AGO AND HAS NOT BEEN TAKING CARE OF SELF D/T LOSING JOB. MED HX: HYPERTHYROID, GRAVES DISEASE ALLERGIES: NKA
--- NOTE | 2020-12-27 22:19 | NUR ---
ERMD AT BEDSIDE.
[2020-12-27] MEDS ORDERED: NACL 0.9% 1,000 ML IV ONE (22:25)
[2020-12-27] MEDS ORDERED: PROPRANOLOL 1 MG/ML VIAL IVP ONE (22:25)
--- NOTE | 2020-12-27 22:44 | NUR ---
PT C/O 10/21 HEADACHE. VERBAL ORDER FROM CHANNING SOLOMON IBUPROFEN 800 MG PO. ORDER PLACED.
[2020-12-27] MEDS ORDERED: IBUPROFEN 800 MG TAB PO ONE (22:45)
--- NOTE | 2020-12-27 22:45 | NUR ---
EKG BEING DONE AT BEDSIDE BY ZACKARY SILVA.
[2020-12-27] MEDS ORDERED: PROPRANOLOL 20 MG TAB ONE (22:49)
[2020-12-27 22:50] LABS: BASOPHILS # (AUTO) 0.1 K/uL (0.00-0.22); BASOPHILS % (AUTO) 0.8 % (0.0-2.0); EOSINOPHILS # (AUTO) 0.3 K/uL (0-0.4); EOSINOPHILS % (AUTO) 2.8 % (0.0-4.0); HEMATOCRIT 43.2 % (36-48); HEMOGLOBIN 14.8 g/dL (12.0-16.0); LYMPHOCYTES # (AUTO) 2.7 K/uL (2.5-16.5); LYMPHOCYTES % (AUTO) 25.5 % (20.5-51.1); MEAN CORPUSCULAR HEMOGLOBIN 31 pg (27-31); MEAN CORPUSCULAR HGB CONC 34 g/dL (33-37); MEAN CORPUSCULAR VOLUME 89.4 fL (80-94); MONOCYTES # (AUTO) 0.6 K/uL (0.8-1.0); MONOCYTES % (AUTO) 5.8 % (1.7-9.3); NEUTROPHILS # (AUTO) 6.8 K/uL (1.8-7.7); NEUTROPHILS % (AUTO) 65.1 % (42.2-75.2); PLATELET COUNT (AUTO) 306 K/uL (140-450); RED BLOOD CELL COUNT(AUTO) 4.83 MIL/uL (4.20-5.40); WHITE BLOOD COUNT (AUTO) 10.5 K/uL (4.8-10.8)
[2020-12-27] MEDS ORDERED: PROPRANOLOL 20 MG TAB PO SCH (22:50)
--- NOTE | 2020-12-27 22:53 | NUR ---
XRAY AT BEDSIDE.
[2020-12-27 23:14] LABS: ALBUMIN 3.8 g/dL (3.4-5.0); ANION GAP 13.6 (8-16); CARBON DIOXIDE 28.3 mmol/L (21-32); FREE T4 (FREE THYROXINE) 0.93 ng/dL (0.76-1.46); POTASSIUM 3.9 mmol/L (3.5-5.1); THYROID STIMULATING HORMONE 2.04 uIU/mL (0.34-3.74); TOTAL BILIRUBIN 0.3 mg/dL (0.0-1.0)
--- NOTE | 2020-12-27 23:38 | NUR ---
PT AMBULATED TO RESTROOM WITH STEADY AND EVEN GAIT.
[2020-12-27 23:50] LABS: APPEARANCE,URINE SL CLOUDY (CLEAR); BILIRUBIN,URINE NEGATIVE (NEGATIVE); BLOOD, URINE NEGATIVE (NEGATIVE); COLOR,URINE YELLOW (YELLOW); LEUKOCYTE ESTERASE ,URINE NEGATIVE (NEGATIVE); NITRITE, URINE NEGATIVE (NEGATIVE); PH,URINE 5.5 (5.0-9.0); UGLUCOSE NEGATIVE (NEGATIVE)
--- NOTE | 2020-12-28 00:57 | NUR ---
Patient appears to be resting comfortably in bed, AWAKE. Vital Signs within normal limits. Respirations even and unlabored. PT REPORTS "IM ALREADY FEELING SO MUCH BETTER."
--- NOTE | 2020-12-28 03:05 | NUR ---
ERMD AT BEDSIDE.
[2020-12-28] MEDS ORDERED: PROP20TA29 PO (03:39)
[2020-12-28] MEDS ORDERED: IMO2 PO (03:39)
[2020-12-28 03:41] VITALS: BP 122/57
--- NOTE | 2020-12-28 03:41 | NUR ---
Patient discharged with v/s stable. Written and verbal after care instructions given and explained. Patient alert, oriented and verbalized understanding of instructions. Ambulatory with steady gait. All questions addressed prior to discharge. ID band removed. Patient advised to follow up with PMD. Rx of LOPERAMIDE AND INDERAL given. Patient educated on indication of medication including possible reaction and side effects. Opportunity to ask questions provided and answered.
[2020-12-28] MEDS ORDERED: METOPROLOL SUCCINATE 50 MG TABER PO SCH (09:00)
== END 2020-12-28 03:41 | disposition home or self-care (01) ==
LOC: MED 21:02
DX: R19.7 Diarrhea, unspecified (principal); R11.2 Nausea with vomiting, unspecified; R10.9 Unspecified abdominal pain; E06.9 Thyroiditis, unspecified; Z79.899 Other long term (current) drug therapy; Z20.822 Contact with and (suspected) exposure to COVID-19
CPT/HCPCS: 36415; 71045; 80053; 81003; 81025; 83605; 83880; 84439; 84443; 84479; 84484; 85025; 87426; 93005; 96360; 99285; J7030; Q0092; J1800

== ENCOUNTER 2022-01-20 16:38 | Emergency (ER) | payer OTHER ==
[~2022-01-20] VITALS: Ht 172.7 cm; Wt 164.2 kg
[~2022-01-20 16:38] MED LIST changes: +IMO2 PO; +PROP20TA29 PO
[2022-01-20 16:45] VITALS: BP 130/99
[2022-01-20] MEDS ORDERED: ONDANSETRON 4 MG/2 ML VIAL IVP ONE (17:25)
[2022-01-20] MEDS: NACL 0.9% 1,000 ML IV SCH ×2 (17:34→20:41)
[2022-01-20 18:04] LABS: BASOPHILS # (AUTO) 0.1 K/uL (0.00-0.22); BASOPHILS % (AUTO) 0.6 % (0.0-2.0); EOSINOPHILS # (AUTO) 0.1 K/uL (0-0.4); EOSINOPHILS % (AUTO) 1.4 % (0.0-4.0); HEMATOCRIT 43.9 % (36-48); HEMOGLOBIN 15.2 g/dL (12.0-16.0); LYMPHOCYTES # (AUTO) 1.2 K/uL (2.5-16.5); MEAN CORPUSCULAR HEMOGLOBIN 30 pg (27-31); MEAN CORPUSCULAR HGB CONC 35 g/dL (33-37); MEAN CORPUSCULAR VOLUME 87.6 fL (80-94); MONOCYTES # (AUTO) 0.6 K/uL (0.8-1.0); MONOCYTES % (AUTO) 7.1 % (1.7-9.3); NEUTROPHILS # (AUTO) 6.4 K/uL (1.8-7.7); NEUTROPHILS % (AUTO) 76.9 % (42.2-75.2); PLATELET COUNT (AUTO) 188 K/uL (140-450); RED BLOOD CELL COUNT(AUTO) 5.01 MIL/uL (4.20-5.40); RED CELL DISTRIBUTION WIDTH 13.8 % (11.6-13.7); WHITE BLOOD COUNT (AUTO) 8.3 K/uL (4.8-10.8)
[2022-01-20 18:32] LABS: ALBUMIN 3.8 g/dL (3.4-5.0); ANION GAP 19.9 (8-16); ASPARTATE AMINOTRANSFERASE 48 U/L (15-37); CARBON DIOXIDE 24.4 mmol/L (21-32); CHLORIDE 102 mmol/L (98-107); CREATININE 0.7 mg/dL (0.6-1.3); GFR ARICAN-AMERICAN 123 mL/min (>90); GLUCOSE 95 mg/dL (74-106); POTASSIUM 3.3 mmol/L (3.5-5.1); SODIUM SERUM 143 mmol/L (136-145); TOTAL BILIRUBIN 0.7 mg/dL (0.0-1.0); UREA NITROGEN, BLOOD 10 mg/dL (7-18)
[2022-01-20] MEDS ORDERED: FAMOTIDINE 20 MG/2 ML VIAL IVP ONE (20:10)
[2022-01-20] MEDS ORDERED: diphenhydrAMINE 50 MG/ML VIAL IVP ONE (20:35)
[2022-01-20] MEDS ORDERED: PROCHLORPERAZINE 10 MG/2 ML VIAL IVP ONE (20:35)
[2022-01-20] MEDS ORDERED: PROC-62 PO (21:07)
[2022-01-20 21:20] VITALS: BP 121/68
== END 2022-01-20 21:20 | disposition home or self-care (01) ==
LOC: MED 16:38
DX: R11.2 Nausea with vomiting, unspecified (principal); R19.7 Diarrhea, unspecified; Z98.84 Bariatric surgery status
CPT/HCPCS: 36415; 74177; 80053; 81025; 83690; 85025; 96361; 96374; 96375; 99285; J0780; J1200; J2405; J3490; Q9967